=== PATIENT | female | born 1980 | race Caucasian/White ===

== ENCOUNTER → 2023-09-06 | Outpatient (REF) | payer OTHER ==
[~2023-09-06] MED LIST: IOPAMIDOL 370 MG/ML 100 ML INFUS..BTL INJ ONE
[2023-09-06 16:24] LABS: CREATININE, SERUM 0.77 mg/dL (0.57-1.11)
== END ==
LOC: CT 15:08
PROVIDERS: ATTEND Internal Medicine Interventional Cardiology
DX: R07.9 Chest pain, unspecified (principal); K76.0 Fatty (change of) liver, not elsewhere classified
CPT/HCPCS: 36415; 71260; 81025; 82565; 84520; Q9967